=== PATIENT | female | born 1985 | race Asian ===

== ENCOUNTER 2024-03-23 13:15 | Outpatient (CLI) | payer MEDICAID | END 2024-03-23 23:59 | disposition home or self-care (01) | LOC: MRI 13:15 | PROVIDERS: ATTEND Anesthesiology | DX: M51.16 Intervertebral disc disorders with radiculopathy, lumbar region (principal); M53.3 Sacrococcygeal disorders, not elsewhere classified; M48.061 Spinal stenosis, lumbar region without neurogenic claudication | CPT/HCPCS: 72148 ==